=== PATIENT | male | born 1930 | race Caucasian/White ===

== ENCOUNTER 2017-11-06 06:05 | Emergency (ER) | payer MEDICARE ==
--- NOTE | 2017-11-06 06:21 | Emergency Department Record ---
History of Present Illness - General Source: Patient Mode of Arrival: Wheelchair Limitations: No limitations - History of Present Illness Initial Comments: 87 yo male presents to ED for evaluation following a fall this morning resulting in "pain all over". Patient reports abdominal and right sided flank pain symptoms specifically following his fall. Patient reports that he fell from a chair this morning, is not sure whether or not he may have injured his head/neck. Patient also reports increased weakness following a fall 1 week ago. MD Complaint: Fall Onset/Timin -: Minutes(s) Fall From: Chair When Fall Occurred: 1-3 hours [employer] Fall Witnessed: No Place Fall Occurred: assisted/SNF Loss of Consciousness: None Prolonged Down Time?: No Symptoms Prior to Fall: None Location: Chest, Back, Abdomen Severity: Moderate Severity scale (1-10): 5 Quality: Aching Context: Tripped/slipped Associated Symptoms: Denies - [place] Coma Scale Eye Response: (4) Open spontaneously Motor Response: (6) Obeys commands Verbal Response: (5) Oriented Lobo Total: 15 <MIRZA GRACIA - Last Filed: 11/06/17 07:50> <TRICIA CRUZ - Last Filed: 11/06/17 08:41> - General Chief Complaint: Fall Injury Stated Complaint: FALL Time Seen by Provider: 11/06/17 06:15 - Related Data Allergies Allergy/AdvReac Type Severity Reaction Status Date / Time No Known Drug Allergies Allergy Verified 10/30/17 04:13 Travel Screening - Travel/Exposure Within Last 30 Days Have you traveled within the last 30 days?: No - Travel Symptoms Symptom Screening: None <MIRZA GRACIA - Last Filed: 11/06/17 07:50> Review of Systems Constitutional: Denies: Chills, Fever, Malaise, Night sweats Eyes: Denies: Eye discharge, Eye pain ENT: Denies: Congestion, Ear pain, Epistaxis Respiratory: Denies: Cough, Dyspnea Cardiovascular: Denies: Chest pain, Dyspnea on exertion Endocrine: Denies: Fatigue, Heat or cold intolerance Gastrointestinal: Reports: Abdominal pain. Denies: Nausea, Vomiting Genitourinary: Denies: Incontinence, Retention Musculoskeletal: Reports: Back pain. Denies: Gout, Joint swelling Skin: Denies: Bruising, Change in color Neurological: Denies: Abnormal gait, Confusion, Headache, Seizure Psychiatric: Denies: Anxiety Hematological/Lymphatic: Denies: Anemia, Blood Clots <MIRZA GRACIA - Last Filed: 11/06/17 07:50> Past Medical History - SOCIAL HISTORY Smoking Status: Never smoker - RESPIRATORY Hx Respiratory Disorders: No - CARDIOVASCULAR Hx Cardio Disorders: Yes Hx Edema: Yes Hx Hypertension: Yes Comment:: high cholesterol - NEURO Hx Neuro Disorders: Yes Hx Dementia: Yes Comment:: Tremors - GI Hx GI Disorders: Yes Hx Reflux: Yes - Hx Genitourinary Disorders: Yes Hx Prostate Problems: Yes - ENDOCRINE Hx Endocrine Disorders: Yes Hx Thyroid Disease: Yes - MUSCULOSKELETAL Hx Musculoskeletal Disorders: Yes Hx Arthritis: Yes - PSYCH Hx Psych Problems: No - HEMATOLOGY/ONCOLOGY Hx Hematology/Oncology Disorders: Yes Hx Anemia: Yes Hx Cancer: Yes (Prostate, thyroid) Hx Chemotherapy: No Hx Radiation Therapy: No <MIRZA GRACIA - Last Filed: 11/06/17 07:50> Family Medical History Any Significant Family History?: Yes Hx Cancer: Mother, Brother/Sister Hx Heart Disease: Father <MIRZA GRACIA - Last Filed: 11/06/17 07:50> Physical Exam - General General Appearance: Alert, Oriented x3, Cooperative, Moderate distress, Other ( Patient appears very weak on examination, unable to sit up due to weakness and pain symptoms to the right flank/abdomen.) Limitations: No limitations - Head Head exam: Atraumatic, Normocephalic, Normal inspection Head exam detail: negative: Abrasion, Contusion, Valentin's sign, General tenderness, Hematoma, Laceration - Eye Eye exam: Normal appearance. negative: Conjunctival injection, Periorbital swelling, Periorbital tenderness, Scleral icterus - ENT Ear exam: negative: Auricular hematoma, Auricular trauma Nasal Exam: negative: Active bleeding, Discharge, Dried blood, Foreign body Mouth exam: negative: Drooling, Laceration, Muffled voice, Tongue elevation - Neck Neck exam: Normal inspection. negative: Meningismus, Tenderness - Respiratory Respiratory exam: Normal lung sounds bilaterally. negative: Rales, Respiratory distress, Rhonchi, Stridor - Cardiovascular Cardiovascular Exam: Regular rate, Normal rhythm, Normal heart sounds - GI/Abdominal GI/Abdominal exam: Soft, Tenderness (TTP to the RLQ, RUQ on examination). negative: Rebound, Rigid - Rectal Rectal exam: Deferred - exam: Deferred - Extremities Extremities exam: Pedal edema. negative: Calf tenderness, Tenderness - Back Back exam: Reports: CVA tenderness (R) (abraison present to the right flank) - Neurological Neurological exam: Alert, Oriented X3 - Psychiatric Psychiatric exam: Normal affect, Normal mood - Skin Skin exam: Abrasion (right flank). negative: Normal color Type of lesion: abrasion <MIRZA GRACIA - Last Filed: 11/06/17 07:50> Course Vital Signs 11/06/17 06:07 Temperature 98.1 F Pulse Rate 72 Respiratory 16 Rate Blood Pressure 143/69 Pulse Ox 99 - Reevaluation(s) Reevaluation #1: 11/06/17 06:26 EKG: NSR 60 Normal axis, normal intervals T wave inversion III Reevaluation #2: 11/06/17 06:49 Laboratory studies were reviewed: WBC 12.5 Hgb 9.1 (previous 8.9 10/19/17) Labs are otherwise grossly unremarkable for an acute process. UA pending. Reevaluation #3: 11/06/17 07:27 UA reviewed and appears grossly unremarkable for infection. Reevaluation #4: 11/06/17 07:50 CT imaging is pending at this time. Case was discussed with the patient's PCP, reports that the patient's [facility] facility has the ability to perform rehabilitation and strength exercises. <MIRZA GRACIA - Last Filed: 11/06/17 07:50> Vital Signs 11/06/17 11/06/17 06:07 07:29 Temperature 98.1 F Pulse Rate 72 Pulse Rate [ 58 L Pulse Ox Probe] Respiratory 16 22 Rate Blood Pressure 143/69 Blood Pressure 150/73 [Left Arm] Pulse Ox 99 100 - Reevaluation(s) Reevaluation #5: 11/06/17 08:[address] of the cervical spine was read as no fracture. Advanced degenerative changes The CT of the head was reviewed. Right temporal hypoattenuation that is age indeterminate without comparison, otherwise negative 11/06/17 08:[address] scan demonstrated old healed rib fractures. Right posterior small ill defined nodule. Recommend 3 month follow up The abdominal CT demonstrated an ill defined area of bowel thickening of the TI , cecum, and ascending colon. The findings were discussed with the patient and his The findings were discussed with Dr Galo the PCP. The patient has not had any acute neurologic symptoms to suggest the HCT finding is acute The patient is not having any GI symptoms such as pain, fever, vomiting or diarrhea. Dr Galo was informed of the HCT findings, right posterior lung mass for follow up in 3 months and the abdominal CT finding to monitor for any abdominal or GI symptoms in the next few days. DC stable to [facility]. <TRICIA CRUZ - Last Filed: 11/06/17 08:41> Medical Decision Making - Lab Data Result diagrams: 11/06/17 06:22 11/06/17 06:22 <MIRZA GRACIA - Last Filed: 11/06/17 07:50> - Lab Data Result diagrams: 11/06/17 06:22 11/06/17 06:22 Lab Results 11/06/17 11/06/17 11/06/17 Range/Units 06:22 06:22 07:15 WBC 12.5 H (4.2-12.2) K/uL RBC 3.31 L (4.40-5.70) M/uL Hgb 9.1 L (14.0-18.0) gm/dl Hct 31.5 L (42.0-52.0) % MCV 95.2 (81-97) fl MCH 27.4 (27-33) pg MCHC 28.9 L (32-36) g/dl RDW 14.4 (11.5-14.5) % Plt Count 475 H (130-400) K/uL MPV 9.3 (7.4-10.4) fl Gran % 73.0 (47-80) % Lymphocytes % 13.7 L (16-45) % Monocytes % 10.8 H (0-9) % Eosinophils % 2.3 (0-6) % Basophils % 0.2 (0-6) % Sodium 144 (136-145) mmol/L Potassium 4.3 (3.4-4.5) mmol/L Chloride 103 (98-107) mmol/L Carbon Dioxide 31.0 H (22-29) mmol/L Anion Gap 10.0 (7-16) BUN 24 H (8-23) mg/dL Creatinine 0.9 (0.7-1.2) mg/dL Estimated GFR > 60 mL/min Random Glucose 104 (74-109) mg/dL Calcium 8.6 L (8.8-10.2) mg/dL Total Bilirubin 0.40 (0.2-1.0) mg/dL AST 19 (10.0-50.0) U/L ALT 9 (<41) U/L Alkaline Phosphatase 59 (40-129) U/L Total Protein 5.9 L (6.6-8.7) g/dL Albumin 3.3 L (4.0-5.0) g/dL Globulin 2.6 (1.4-4.8) gm/dL Albumin/Globulin Ratio 1.3 (1.1-1.8) Urine Color Yellow Urine Appearance Clear Urine pH 6.0 (5.0-8.0) Ur Specific [place] 1.025 (1.002-1.030) Urine Protein Negative (NEGATIVE) Urine Glucose (UA) Negative (NEGATIVE) Urine Ketones Trace H (NEGATIVE) Urine Blood Negative (NEGATIVE) Urine Nitrite Negative (NEGATIVE) Urine Bilirubin Negative (NEGATIVE) Urine Urobilinogen 0.2 (0.20 - 1.00) E.U./dL Ur Leukocyte Esterase Negative (NEGATIVE) <TRICIA CRUZ - Last Filed: 11/06/17 08:41> Disposition Disposition: Discharge Time of Disposition: 07:53 <MIRZA GRACIA - Last Filed: 11/06/17 07:50> <TRICIA CRUZ - Last Filed: 11/06/17 08:41> Clinical Impression: Fall Qualifiers: Encounter type: initial encounter Qualified Code(s): W19.XXXA - Unspecified fall, initial encounter Contusion of flank Qualifiers: Encounter type: initial encounter Qualified Code(s): S30.1XXA - Contusion of abdominal wall, initial encounter Disposition: Home, Self-Care Condition: (2) Stable Instructions: Fall Prevention for Older Adults (ED) Additional Instructions: Return to ED if your symptoms worsen or if you have any concerns. Follow-up with Dr. Galo in 3-5 days as directed. Forms: Patient Portal Access Quality - Blood Pressure Screening Does Patient Have Any of the Following: No Blood Pressure Classification: Hypertensive Reading Systolic Measurement: 143 Diastolic Measurement: 69 <MIRZA GRACIA - Last Filed: 11/06/17 07:50> - Quality Measures Quality Measures: N/A - Blood Pressure Screening Does Patient Have Any of the Following: No Blood Pressure Classification: Hypertensive Reading Systolic Measurement: 143 Diastolic Measurement: 69 Screening for High Blood Pressure: < Pre-Hypertensive BP, F/U Documented > [ [id number]] Pre-Hypertensive Follow-up Interventions: Referral to alternative/primary care provider. <TRICIA CRUZ - Last Filed: 11/06/17 08:41>
[2017-11-06 06:29] LABS: BASO % 0.2 % (0-6); EOS % 2.3 % (0-6); HEMATOCRIT 31.5 % (42.0-52.0); HEMOGLOBIN 9.1 gm/dl (14.0-18.0); LYMPH % 13.7 % (16-45); MEAN CELL VOLUME 95.2 fl (81-97); MEAN CORPUSCULAR HGB CONC 28.9 g/dl (32-36); MEAN PLATELET VOLUME 9.3 fl (7.4-10.4); MONO % 10.8 % (0-9); PLATELET COUNT 475 K/uL (130-400); RED BLOOD COUNT 3.31 M/uL (4.40-5.70); RED CELL DISTRIBUTION WIDTH 14.4 % (11.5-14.5); WHITE BLOOD COUNT W/O DIFF 12.5 K/uL (4.2-12.2)
[2017-11-06 06:31] LABS: MEAN CORPUSCULAR HEMOGLOBIN 27.4 pg (27-33)
[2017-11-06 06:38] LABS: BLOOD UREA NITROGEN 24 mg/dL (8-23); CREATININE 0.9 mg/dL (0.7-1.2); EST GLOMERULAR FILTRATION RATE > 60 mL/min; TOTAL PROTEIN 5.9 g/dL (6.6-8.7)
[2017-11-06 06:40] LABS: GLUCOSE,RANDOM 104 mg/dL (74-109)
[2017-11-06 06:43] LABS: ALB/GLOB RATIO 1.3 (1.1-1.8); ALBUMIN 3.3 g/dL (4.0-5.0); ALKALINE PHOSPHATASE 59 U/L (40-129); ALT/SGPT 9 U/L (<41); AST/SGOT 19 U/L (10.0-50.0)
[2017-11-06] MEDS ORDERED: 0.9 % SODIUM CHLORIDE 1000ML 500 ML IV SCH (07:15)
[2017-11-06 07:24] LABS: URINE APPEARANCE CLEAR; URINE BILIRUBIN NEGATIVE (NEGATIVE); URINE BLOOD NEGATIVE (NEGATIVE); URINE COLOR YELLOW; URINE GLUCOSE (UA) NEGATIVE (NEGATIVE); URINE KETONE TRACE (NEGATIVE); URINE LEUKOCYTE ESTERASE NEGATIVE (NEGATIVE); URINE NITRITE NEGATIVE (NEGATIVE); URINE PROTEIN NEGATIVE (NEGATIVE); URINE UROBILINOGEN 0.2 E.U./dL (0.20 - 1.00)
--- NOTE | 2017-11-09 13:26 | CT SCAN REPORT ---
EXAM: CT OF THE HEAD WITHOUT CONTRAST HISTORY: SLIP AND FALL FROM CHAIR TO FLOOR. TECHNIQUE: Routine CT images of the head were obtained without contrast. FINDINGS: The ventricles, basal cisterns and sulci are enlarged consistent with prominent generalized cerebral atrophy. There is periventricular hypoattenuation likely related to chronic microvascular ischemia. There is a focus of hypoattenuation within the right temporal lobe which may relate to acute or chronic ischemia. Previous images are unavailable to document stability. No intracranial mass or hemorrhage. There are vascular calcifications. The orbital contents are unremarkable. There is mild scattered paranasal sinus mucosal thickening. IMPRESSION: 1. SMALL FOCUS OS HYPOATTENUATION WITHIN THE RIGHT TEMPORAL REGION. THIS COULD RELATE TO ACUTE OR CHRONIC ISCHEMIA. PLEASE CORRELATE CLINICALLY. IF PERSISTENT CLINICAL CONCERN MR COULD BE OBTAINED FOR FURTHER ASSESSMENT. 2. ELSEWHERE THERE ARE CHANGES OF CHANGES OF CHRONIC MICROVASCULAR ISCHEMIA AND PROMINENT GENERALIZED CEREBRAL ATROPHY. JOB NUMBER: [id number] MTDD
--- NOTE | 2017-11-09 13:29 | CT SCAN REPORT ---
EXAM: CT OF THE CERVICAL SPINE WITHOUT CONTRAST HISTORY: FALL FROM CHAIR. TECHNIQUE: Routine noncontrast CT images of the cervical spine were obtained. FINDINGS: No fracture, subluxation, or significant loss of vertebral body height. There is advanced multilevel degenerative disk and facet disease throughout. There are atherosclerotic calcifications. The visualized lung apices are clear. IMPRESSION: NO ACUTE CERVICAL SPINE ABNORMALITY. ADVANCED MULTILEVEL DEGENERATIVE DISK AND FACET DISEASE. JOB NUMBER: [id number] MTDD
--- NOTE | 2017-11-09 13:37 | CT SCAN REPORT ---
EXAM: CT OF THE CHEST WITHOUT CONTRAST HISTORY: SLIP AND FALL. TECHNIQUE: Routine noncontrast CT images of the chest were obtained. Comparison: None. FINDINGS: The heart is not enlarged. No pericardial effusion. There is aortic and coronary artery atherosclerosis. There are granulomatous calcifications within the mediastinal and hilar lymph nodes. There is a moderate to large hiatal hernia. The lungs are free of focal consolidation. No pleural effusion or pneumothorax. There is mild left basilar atelectasis. Additionally there is a somewhat irregular mass within the right lung base. Follow-up imaging likely is warranted. There is pronounced dextroscoliotic curvature of the thoracic spine. Old bilateral rib fractures. No clearly acute osseous abnormality. The chest wall is unremarkable. IMPRESSION: 1. MILD LEFT BASILAR ATELECTASIS. 2. IRREGULAR FOCUS WITHIN THE POSTERIOR RIGHT LOWER LOBE. NEOPLASM NOT EXCLUDED. OTHER PROCESSES SUCH SCAR COULD HAVE THIS APPEARANCE. PREVIOUS IMAGES UNAVAILABLE TO DOCUMENT STABILITY. AT A MINIMUM RECOMMEND SHORT TERM FOLLOW-UP CHEST CT IN THREE MONTHS. 3. OLD BILATERAL RIB FRACTURES. 4. DEXTROSCOLIOTIC CURVATURE OF THE THORACIC SPINE. 5. GRANULOMATOUS CALCIFICATIONS. 6. MODERATE TO LARGE HIATAL HERNIA. 7. OTHER CHRONIC FINDINGS ABOVE. JOB NUMBER: [id number] MTDD
--- NOTE | 2017-11-09 13:48 | CT SCAN REPORT ---
EXAM: CT OF THE ABDOMEN AND PELVIS WITHOUT CONTRAST HISTORY: SLIP AND FALL FROM CHAIR TO FLOOR. TECHNIQUE: Routine noncontrast CT images of the abdomen and pelvis were obtained. Comparison: None. FINDINGS: Please see concurrent chest CT for discussion of lung bases. The liver, gallbladder, pancreas, granulomatous spleen, and adrenals are unremarkable. There are bilateral renal cysts. Punctate nonobstructing right intrarenal calculi. No ureteral calculi or hydronephrosis. Large hiatal hernia. There is rectal wall thickening and inflammatory change which may relate to proctitis. Additionally, there is wall thickening and surrounding inflammatory change involving the cecum and ascending colon. This could relate to infectious or inflammatory change. No underlying neoplasm not excluded. Small bowel normal in caliber. Scattered colonic diverticulosis present elsewhere. The bladder is unremarkable. The prostate is surgically absent. There is moderate scattered atherosclerotic calcification. There is mild aortic ectasia without aneurysmal dilatation. No abdominal or pelvic lymphadenopathy. No free air. The abdominal wall soft tissues are unremarkable. Levocurvature of the lumbar spine. Moderate lumbar spondylosis. No acute osseous abnormality is seen. IMPRESSION: 1. THERE IS SIGNIFICANT WALL THICKENING WHICH APPEARS CENTERED WITHIN THE CECUM AND ASCENDING COLON. THE TERMINAL ILEUM ALSO APPEARS INVOLVED. THIS COULD RELATE TO UNDERLYING INFECTIOUS OR INFLAMMATORY CHANGE (INCLUDING INFLAMMATORY BOWEL DISEASE). NEOPLASM NOT EXCLUDED. CORRELATE WITH HISTORY OF COLONOSCOPY. 2. WALL THICKENING INVOLVING THE RECTUM WITH SURROUNDING INFLAMMATORY CHANGE AND EDEMA. THIS COULD RELATE TO PROCTITIS. THE PROSTATE IS SURGICALLY ABSENT, CHRONIC POST RADIATION CHANGES ARE ALSO POSSIBLE. 3. COLONIC DIVERTICULOSIS. 4. GRANULOMATOUS CALCIFICATIONS. 5. BILATERAL RENAL CYSTS. NONOBSTRUCTING RIGHT INTRARENAL CALCULUS. 6. OTHER CHRONIC FINDINGS ABOVE. JOB NUMBER: [id number] [facility]
== END 2017-11-06 08:52 | disposition home or self-care (01) ==
LOC: ER 06:05
DX: S30.1XXA Contusion of abdominal wall, initial encounter (principal); R53.1 Weakness; I10 Essential (primary) hypertension; W07.XXXA Fall from chair, initial encounter; Y92.129 Unspecified place in nursing home as the place of occurrence of the external cause; Z91.81 History of falling
CPT/HCPCS: 70450; 71250; 72125; 74176; 80053; 81003; 85025; 93005; 93010; 99284; J7030

== ENCOUNTER 2017-11-12 20:19 | Emergency (ER) | payer MEDICARE ==
--- NOTE | 2017-11-12 20:37 | Emergency Department Record ---
History of Present Illness - General Chief Complaint: Laceration(s) Stated Complaint: FALL INJURY/HIT HEAD Time Seen by Provider: 11/12/17 20:31 Source: Patient Mode of Arrival: Ambulatory - History of Present Illness Initial Commments: The patient was sitting on the bed this evening when he leaned backward and accidentally hit the back of his head on the window sill. He denies any falling to the floor, and denies any other symptoms such as chest pain, SOB, ERENDIRA, abdominal pain, dizziness, diaphoresis, or stroke symptoms. He is only here because it is protocol for im to be checked out, and he has a tiny cut on the spot where his head hit. He denies neck pain, headache, or need to update his tetanus. He denies being on blood thinners. The son is at the bedside and agrees with this assessment. He state also that his dad's feet are frequently cold and swelling is not a new problem. Onset/Timin -: Minutes(s) Location: Scalp Place: Other Context: Accidental - Related Data Allergies Allergy/AdvReac Type Severity Reaction Status Date / Time No Known Drug Allergies Allergy Verified 10/30/17 04:13 Travel Screening - Travel/Exposure Within Last 30 Days Have you traveled within the last 30 days?: No Review of Systems Reviewed: No additional complaints except as noted below Constitutional: Reports: As per HPI. Denies: Chills, Fever, Malaise, Night sweats, Weakness, Weight change Eyes: Reports: As per HPI. Denies: Eye discharge, Eye pain, Photophobia, Vision change ENT: Reports: As per HPI. Denies: Congestion, Dental pain, Ear pain, Epistaxis , Hearing loss, Throat pain Respiratory: Reports: As per HPI. Denies: Cough, Dyspnea, Hemoptysis, Stridor, Wheezes Cardiovascular: Reports: As per HPI. Denies: Arrhythmia, Chest pain, Dyspnea on exertion, Edema, Murmurs, Orthopnea, Palpitations, Paroxysmal nocturnal dyspnea, Rheumatic Fever, Syncope Endocrine: Reports: As per HPI. Denies: Fatigue, Heat or cold intolerance, Polydipsia, Polyuria Gastrointestinal: Reports: As per HPI. Denies: Abdominal pain, Constipation, Diarrhea, Hematemesis, Hematochezia, Melena, Nausea, Vomiting Genitourinary: Reports: As per HPI. Denies: Dysuria, Frequency, Hematuria, Incontinence, Retention, Testicular pain, Testicular mass, Urgency Musculoskeletal: Reports: As per HPI. Denies: Arthralgia, Back pain, Gout, Joint swelling, Myalgia, Neck pain Skin: Reports: As per HPI. Denies: Bruising, Change in color, Change in hair/ nails, Lesions, Pruritus, Rash Neurological: Reports: As per HPI. Denies: Abnormal gait, Confusion, Headache, Numbness, Paresthesias, Seizure, Tingling, Tremors, Vertigo, Weakness Psychiatric: Reports: As per HPI. Denies: Anxiety, Auditory hallucinations, Depression, Homicidal thoughts, Suicidal thoughts, Visual hallucinations Hematological/Lymphatic: Reports: As per HPI. Denies: Anemia, Blood Clots, Easy bleeding, Easy bruising, Swollen glands Past Medical History - SOCIAL HISTORY Smoking Status: Never smoker Alcohol Use: None Drug Use: None - RESPIRATORY Hx Respiratory Disorders: No - CARDIOVASCULAR Hx Cardio Disorders: Yes Hx Edema: Yes Hx Hypertension: Yes Comment:: high cholesterol - NEURO Hx Neuro Disorders: Yes Hx Dementia: Yes Comment:: Tremors - GI Hx GI Disorders: Yes Hx Reflux: Yes - Hx Genitourinary Disorders: Yes Hx Prostate Problems: Yes - ENDOCRINE Hx Endocrine Disorders: Yes Hx Thyroid Disease: Yes - MUSCULOSKELETAL Hx Musculoskeletal Disorders: Yes Hx Arthritis: Yes - PSYCH Hx Psych Problems: No - HEMATOLOGY/ONCOLOGY Hx Hematology/Oncology Disorders: Yes Hx Anemia: Yes Hx Cancer: Yes (Prostate, thyroid) Hx Chemotherapy: No Hx Radiation Therapy: No Family Medical History Any Significant Family History?: Yes Hx Cancer: Mother, Brother/Sister Hx Heart Disease: Father Physical Exam - General General Appearance: Alert, Oriented x3, Cooperative, No acute distress - Head Head exam: Other (1-2mm superficial cutto back of head at edge of hairline, edges do not gape, small contusion beneath wit no bony tenderness or deformity.) Image of Face/Head: 1 - 1-2 mm tiny superficial laceration, no suturing needed. - Eye Eye exam: Normal appearance, PERRL Pupils: Normal accommodation - ENT ENT exam: Normal exam, Mucous membranes moist, Normal external ear exam, Normal orophraynx, TM's normal bilaterally Ear exam: Normal external inspection. negative: External canal tenderness Nasal Exam: Normal inspection. negative: Discharge, Sinus tenderness Mouth exam: Normal external inspection, Tongue normal Teeth exam: Normal inspection. negative: Dental caries Throat exam: Normal inspection. negative: Tonsillar erythema, Tonsillar exudate - Neck Neck exam: Normal inspection, Full ROM. negative: Lymphadenopathy, Meningismus , Tenderness - Respiratory Respiratory exam: Normal lung sounds bilaterally. negative: Respiratory distress - Cardiovascular Cardiovascular Exam: Regular rate, Normal rhythm, Normal heart sounds - GI/Abdominal GI/Abdominal exam: Soft, Normal bowel sounds. negative: Tenderness - Rectal Rectal exam: Deferred - exam: Deferred - Extremities Extremities exam: Normal inspection, Full ROM, Normal capillary refill, Pedal edema (chronic appearing mild to moderate bilateral pedal edema). negative: Calf tenderness, Tenderness - Back Back exam: Reports: Normal inspection, Full ROM. Denies: CVA tenderness (R), CVA tenderness (L), Muscle spasm, Rash noted, Tenderness - Neurological Neurological exam: Alert, CN II-XII intact, Normal gait, Oriented X3, Reflexes normal. negative: Motor sensory deficit - Psychiatric Psychiatric exam: Normal affect, Normal mood - Skin Skin exam: Dry, Intact, Normal color, Warm Course Vital Signs 11/12/17 20:24 Temperature 98.3 F Pulse Rate [ 65 Pulse Ox Probe] Respiratory 18 Rate Blood Pressure 154/72 [Left Arm] Pulse Ox 100 - Reevaluation(s) Reevaluation #1: 11/12/17 20:40 Patient declined pain medication. Medical Decision Making - Management Options MDM Management: No Additional Work-up Planned Disposition Disposition: Discharge Clinical Impression: Laceration of skin of scalp Qualifiers: Encounter type: initial encounter Qualified Code(s): S01.01XA - Laceration without foreign body of scalp, initial encounter Disposition: Home, Self-Care Condition: (1) Good Instructions: Laceration (ED) Additional Instructions: Keep covered for protection when sleeping or laying down. Ice to contusion first 48 hours. Tylenol as needed as directed for pain. Follow up with PCP as needed. Quality - Quality Measures Quality Measures: N/A - Blood Pressure Screening Does Patient Have Any of the Following: No Blood Pressure Classification: Hypertensive Reading Systolic Measurement: 154 Diastolic Measurement: 72 Screening for High Blood Pressure: Patient Exclusion, Hx of HTN [J0304]
== END 2017-11-12 20:51 | disposition home or self-care (01) ==
LOC: ER 20:19
DX: S01.01XA Laceration without foreign body of scalp, initial encounter (principal); W06.XXXA Fall from bed, initial encounter; I10 Essential (primary) hypertension; Y92.129 Unspecified place in nursing home as the place of occurrence of the external cause
CPT/HCPCS: 99282

== ENCOUNTER 2017-11-22 00:20 | Emergency (ER) | payer MEDICARE ==
[2017-11-22] MEDS ORDERED: ACETAMINOPHEN 500 MG TABLET PO ONE (00:35)
--- NOTE | 2017-11-22 00:40 | Emergency Department Record ---
History of Present Illness - General Chief complaint: Lower Extremity Pain Stated complaint: R LEG AND HIP PAIN Time Seen by Provider: 11/22/17 00:25 Source: Patient, Family Mode of Arrival: Wheelchair Limitations: No limitations - History of Present Illness Initial comments: pt states he fell earlier today and now has pain in his r thigh and knee. he denies hitting his head. Complaint: Extremity pain Onset/Timin -: Hour(s) Location: Right, Thigh Severity scale (1-10): 8 Consistency: Constant Improves with: Rest Worsens with: Exertion, Weight bearing Associated Symptoms: Denies other symptoms - Related Data Allergies Allergy/AdvReac Type Severity Reaction Status Date / Time No Known Drug Allergies Allergy Verified 10/30/17 04:13 Travel Screening - Travel/Exposure Within Last 30 Days Have you traveled within the last 30 days?: No - Travel Symptoms Symptom Screening: None Review of Systems Reviewed: No additional complaints except as noted below Constitutional: Reports: As per HPI. Denies: Chills, Fever, Malaise, Night sweats, Weakness, Weight change Eyes: Reports: As per HPI. Denies: Eye discharge, Eye pain, Photophobia, Vision change ENT: Reports: As per HPI. Denies: Congestion, Dental pain, Ear pain, Epistaxis , Hearing loss, Throat pain Respiratory: Reports: As per HPI. Denies: Cough, Dyspnea, Hemoptysis, Stridor, Wheezes Cardiovascular: Reports: As per HPI. Denies: Arrhythmia, Chest pain, Dyspnea on exertion, Edema, Murmurs, Orthopnea, Palpitations, Paroxysmal nocturnal dyspnea, Rheumatic Fever, Syncope Endocrine: Reports: As per HPI. Denies: Fatigue, Heat or cold intolerance, Polydipsia, Polyuria Gastrointestinal: Reports: As per HPI. Denies: Abdominal pain, Constipation, Diarrhea, Hematemesis, Hematochezia, Melena, Nausea, Vomiting Genitourinary: Reports: As per HPI. Denies: Dysuria, Frequency, Hematuria, Incontinence, Retention, Testicular pain, Testicular mass, Urgency Musculoskeletal: Reports: As per HPI. Denies: Arthralgia, Back pain, Gout, Joint swelling, Myalgia, Neck pain Skin: Reports: As per HPI. Denies: Bruising, Change in color, Change in hair/ nails, Lesions, Pruritus, Rash Neurological: Reports: As per HPI. Denies: Abnormal gait, Confusion, Headache, Numbness, Paresthesias, Seizure, Tingling, Tremors, Vertigo, Weakness Psychiatric: Reports: As per HPI. Denies: Anxiety, Auditory hallucinations, Depression, Homicidal thoughts, Suicidal thoughts, Visual hallucinations Hematological/Lymphatic: Reports: As per HPI. Denies: Anemia, Blood Clots, Easy bleeding, Easy bruising, Swollen glands Past Medical History - SOCIAL HISTORY Smoking Status: Never smoker - RESPIRATORY Hx Respiratory Disorders: No - CARDIOVASCULAR Hx Cardio Disorders: Yes Hx Edema: Yes Hx Hypertension: Yes Comment:: high cholesterol - NEURO Hx Neuro Disorders: Yes Hx Dementia: Yes Comment:: Tremors - GI Hx GI Disorders: Yes Hx Reflux: Yes - Hx Genitourinary Disorders: Yes Hx Prostate Problems: Yes - ENDOCRINE Hx Endocrine Disorders: Yes Hx Thyroid Disease: Yes - MUSCULOSKELETAL Hx Musculoskeletal Disorders: Yes Hx Arthritis: Yes - PSYCH Hx Psych Problems: No - HEMATOLOGY/ONCOLOGY Hx Hematology/Oncology Disorders: Yes Hx Anemia: Yes Hx Cancer: Yes (Prostate, thyroid) Hx Chemotherapy: No Hx Radiation Therapy: No Family Medical History Any Significant Family History?: Yes Hx Cancer: Mother, Brother/Sister Hx Heart Disease: Father Physical Exam - General General Appearance: Alert, Oriented x3, Cooperative, Mild distress - Head Head exam: Normal inspection - Eye Eye exam: Normal appearance, PERRL, EOMI Pupils: Normal accommodation - ENT ENT exam: Normal exam, Mucous membranes moist, Normal external ear exam, Normal orophraynx Ear exam: Normal external inspection. negative: External canal tenderness Nasal Exam: Normal inspection. negative: Discharge, Sinus tenderness Mouth exam: Normal external inspection, Tongue normal Teeth exam: Normal inspection. negative: Dental caries Throat exam: Normal inspection. negative: Tonsillar erythema, Tonsillar exudate - Neck Neck exam: Normal inspection, Full ROM. negative: Tenderness - Respiratory Respiratory exam: Normal lung sounds bilaterally. negative: Respiratory distress - Cardiovascular Cardiovascular Exam: Regular rate, Normal rhythm, Normal heart sounds - GI/Abdominal GI/Abdominal exam: Soft, Normal bowel sounds. negative: Tenderness - Rectal Rectal exam: Deferred - exam: Deferred - Extremities Extremities exam: Normal inspection, Full ROM, Normal capillary refill, Tenderness (over femur and knee), Other (pt able to lift both legs without difficulty) - Back Back exam: Reports: Normal inspection, Full ROM. Denies: Muscle spasm, Rash noted, Tenderness - Neurological Neurological exam: Alert, CN II-XII intact, Normal gait, Oriented X3 - Psychiatric Psychiatric exam: Normal affect, Normal mood - Skin Skin exam: Dry, Intact, Normal color, Warm Course Vital Signs 11/22/17 11/22/17 00:22 00:26 Temperature 97.6 F Pulse Rate 89 Respiratory 16 Rate Blood Pressure 179/74 Pulse Ox 98 Disposition Disposition: Discharge Clinical Impression: Patella fracture Qualifiers: Encounter type: initial encounter Fracture type: closed Fracture morphology: longitudinal Fracture alignment: nondisplaced Laterality: right Qualified Code(s ): S82.024A - Nondisplaced longitudinal fracture of right patella, initial encounter for closed fracture Disposition: [facility] Condition: (1) Good Instructions: Patellar Fracture (ED), Knee Immobilizer (ED) Additional Instructions: follow up with family doctor and with orthopedic doctor. return sooner if worse. ice and elevate. Forms: Patient Portal Access Quality - Quality Measures Quality Measures: N/A - Blood Pressure Screening Does Patient Have Any of the Following: Active Dx of HTN Blood Pressure Classification: Hypertensive Reading Systolic Measurement: 179 Diastolic Measurement: 74 Screening for High Blood Pressure: Patient Exclusion, Hx of HTN [G9744]
[2017-11-22] MEDS ORDERED: PROMETHAZINE HCL 25 MG TABLET PO ONE (02:24)
--- NOTE | 2017-11-24 10:01 | RADIOLOGY REPORT ---
EXAM: RIGHT HIP HISTORY: FALL WITH RIGHT HIP PAIN. TECHNIQUE: A single frontal view of the pelvis and frontal and lateral views of the right hip were obtained. Comparison: Right hip radiographs 10/30/17. FINDINGS: No acute fracture is seen. No right hip dislocation. Mild degenerative changes of both hips. Lower lumbar spine degenerative change. Large stool ball in the rectum. IMPRESSION: 1. NO ACUTE OSSEOUS FINDINGS. 2. MILD DEGENERATIVE CHANGES. 3. A LARGE STOOL BALL IS INCIDENTALLY NOTED IN THE RECTUM. JOB NUMBER: [id number] [facility]
--- NOTE | 2017-11-24 10:05 | RADIOLOGY REPORT ---
EXAM: RIGHT KNEE HISTORY: FALL WITH PATELLAR KNEE PAIN. TECHNIQUE: Four views of the right knee were obtained. Comparison: None. FINDINGS: No definite knee joint effusion. Prepatellar soft tissue swelling. Vertical lucency extending through the lateral aspect of the patella. Otherwise, no evidence of fracture. No dislocation. Tricompartmental knee joint osteoarthrosis. Large quadriceps insertion. Patellar enthesophyte. Vascular calcifications are noted. 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 MILD PREPATELLAR SOFT TISSUE SWELLING IS NOTED. JOB NUMBER: [id number] [facility]
== END 2017-11-22 02:45 ==
LOC: ER 00:20
DX: S82.024A Nondisplaced longitudinal fracture of right patella, initial encounter for closed fracture (principal); M25.551 Pain in right hip; M79.651 Pain in right thigh; I10 Essential (primary) hypertension; W19.XXXA Unspecified fall, initial encounter; Y92.129 Unspecified place in nursing home as the place of occurrence of the external cause
CPT/HCPCS: 99283; 99284; Q0170

== ENCOUNTER 2018-03-20 21:52 | Emergency (ER) | payer MEDICARE ==
--- NOTE | 2018-03-20 22:00 | Emergency Department Record ---
History of Present Illness - General Chief Complaint: Fall Injury Stated Complaint: FELL OUT OF BED Time Seen by Provider: 03/20/18 21:53 Source: Patient, EMS Mode of Arrival: EMS Limitations: No limitations - History of Present Illness Initial Comments: 87 yo male presents to ED for evaluation following a fall from bed. Patient deneis LOC, and denies use of anticoagulation medications other than baby aspirin. Patient denies symptoms prior to his fall, denies headache, neck pain , focal weakness, or extremity injury on examination. MD Complaint: Fall Onset/Timin -: Minutes(s) Fall From: Out of bed When Fall Occurred: Just prior to arrival Fall Witnessed: No Place Fall Occurred: Home Loss of Consciousness: None Prolonged Down Time?: No Symptoms Prior to Fall: None Location: Head - [place] Coma Scale Eye Response: (4) Open spontaneously Motor Response: (6) Obeys commands Verbal Response: (5) Oriented [place] Total: 15 - Related Data Home Medications Medication Instructions Recorded Confirmed Last Taken Escitalopram Oxalate [Lexapro] 5 mg PO DAILY 03/20/18 03/20/18 Unknown Tamsulosin HCl [Flomax] 0.4 mg PO DAILY 03/20/18 03/20/18 Unknown Allergies Allergy/AdvReac Type Severity Reaction Status Date / Time No Known Drug Allergies Allergy Verified 10/30/17 04:13 Review of Systems Constitutional: Denies: Chills, Fever, Malaise, Night sweats Eyes: Denies: Eye discharge, Eye pain ENT: Denies: Congestion, Ear pain, Epistaxis Respiratory: Denies: Cough, Dyspnea Cardiovascular: Denies: Chest pain, Dyspnea on exertion Endocrine: Denies: Fatigue, Heat or cold intolerance Gastrointestinal: Denies: Abdominal pain, Nausea, Vomiting Genitourinary: Denies: Incontinence, Retention Musculoskeletal: Denies: Arthralgia, Back pain, Gout, Joint swelling Skin: Reports: Other (Abrasion forehead). Denies: Bruising, Change in color Neurological: Denies: Abnormal gait, Confusion, Headache, Seizure Psychiatric: Denies: Anxiety Hematological/Lymphatic: Denies: Anemia, Blood Clots Past Medical History - SOCIAL HISTORY Smoking Status: Never smoker - RESPIRATORY Hx Respiratory Disorders: No - CARDIOVASCULAR Hx Cardio Disorders: Yes Hx Edema: Yes Hx Hypertension: Yes Comment:: high cholesterol - NEURO Hx Neuro Disorders: Yes Hx Dementia: Yes Comment:: Tremors - GI Hx GI Disorders: Yes Hx Reflux: Yes - Hx Genitourinary Disorders: Yes Hx Prostate Problems: Yes - ENDOCRINE Hx Endocrine Disorders: Yes Hx Thyroid Disease: Yes - MUSCULOSKELETAL Hx Musculoskeletal Disorders: Yes Hx Arthritis: Yes - PSYCH Hx Psych Problems: No - HEMATOLOGY/ONCOLOGY Hx Hematology/Oncology Disorders: Yes Hx Anemia: Yes Hx Cancer: Yes (Prostate, thyroid) Hx Chemotherapy: No Hx Radiation Therapy: No Family Medical History Hx Cancer: Mother, Brother/Sister Hx Heart Disease: Father Physical Exam - General General Appearance: Alert, Oriented x3, Cooperative, No acute distress Limitations: No limitations - Head Head exam: Other (Abrasions to the scalp) Head exam detail: Abrasion. negative: Contusion, Valentin's sign, General tenderness, Hematoma, Laceration - Eye Eye exam: Normal appearance. negative: Conjunctival injection, Periorbital swelling, Periorbital tenderness, Scleral icterus - ENT Ear exam: negative: Auricular hematoma, Auricular trauma Nasal Exam: negative: Active bleeding, Discharge, Dried blood, Foreign body Mouth exam: negative: Drooling, Laceration, Muffled voice, Tongue elevation - Neck Neck exam: Other (Cervical collar in place) - Respiratory Respiratory exam: Normal lung sounds bilaterally. negative: Rales, Respiratory distress, Rhonchi, Stridor - Cardiovascular Cardiovascular Exam: Regular rate, Normal rhythm, Normal heart sounds - GI/Abdominal GI/Abdominal exam: Soft. negative: Rebound, Rigid, Tenderness - Rectal Rectal exam: Deferred - exam: Deferred - Extremities Extremities exam: Normal inspection, Full ROM. negative: Pedal edema, Tenderness - Back Back exam: Denies: CVA tenderness (R), CVA tenderness (L) - Neurological Neurological exam: Alert, Oriented X3. negative: Motor sensory deficit - Psychiatric Psychiatric exam: Normal affect, Normal mood - Skin Skin exam: Abrasion (as described above), Normal color Distribution of rash: Head Course - Reevaluation(s) Reevaluation #1: 03/20/18 22:48 CT Brain: No acute intra-cranial hemorrhage Stable chronic changes CT Cervical Spine: Degenerative disc disease No acute traumatic injury to the cervical spine is identified Patient's cervical collar was removed, cervical spine was cleared. Patient and his son were updated on all results, appears stable for discharge at this time. Disposition Disposition: Discharge Clinical Impression: Fall from bed, initial encounter Scalp contusion Qualifiers: Encounter type: initial encounter Qualified Code(s): S00.03XA - Contusion of scalp, initial encounter Disposition: Home, Self-Care Condition: (2) Stable Instructions: Fall Prevention for Older Adults (ED) Additional Instructions: Return to ED if your symptoms worsen or if you have any concerns. Follow-up with your family doctor in 3-5 days as directed. Forms: Patient Portal Access Time of Disposition: 22:00 Quality - Quality Measures Quality Measures: N/A, Blunt Head Trauma (>2yr) - [place] Coma Scale [place] Coma Scale: [place] Coma Scale Eye Response: (4) Open spontaneously Motor Response: (6) Obeys commands Verbal Response: (5) Oriented [place] Total: 15 - Blunt Head Trauma - Adult Quality Measure: Measure #415: Utilization of CT for Minor Blunt Head Trauma ICD10 Codes Entered: Yes Was CT ordered: Yes Does Patient Have Any of the Following: No Exclusions Patient Presented Within 24 Hours of Injury: Yes Lobo Score: [address] for Minor Blunt Head Trauma: < CT Done, Appropriate Indication > [G9529] Additional Inclusion Criteria: Within 24hrs (AND) GCS of 15 (AND) CT ordered. [ G9530] Indications For CT: Age 65 Years and Older - Blood Pressure Screening Does Patient Have Any of the Following: Active Dx of HTN Blood Pressure Classification: Hypertensive Reading Systolic Measurement: 171 Diastolic Measurement: 76 Screening for High Blood Pressure: Patient Exclusion, Hx of HTN [G9744]
--- NOTE | 2018-03-22 08:15 | CT SCAN REPORT ---
EXAM: CT SCAN OF THE HEAD HISTORY: PATIENT HAS A HISTORY OF FALL. TECHNIQUE: Serial axial CT scan of the head was performed at 2.5 mm intervals from the base of the skull to the apex without the use of intravenous contrast. Sagittal and coronal reconstructions are provided. Comparison: CT scan of the head dated 11/06/17 is provided. FINDINGS: There is ventriculomegaly. Moderate parenchymal volume loss is noted. These findings are unchanged with respect to the prior CT scan. There is no mass or mass effect. Moderate periventricular and subcortical white matter chronic small vessel ischemic changes is noted. There is no CT evidence of intra or extraaxial fluid collection to suggest bleeding. Bone windows demonstrate no CT evidence of a fracture or dislocation of the skull. The paranasal sinuses are unremarkable. IMPRESSION: STABLE CT APPEARANCE OF THE BRAIN WITH RESPECT TO THE PRIOR EXAMINATION. JOB NUMBER: [id number] [facility]
--- NOTE | 2018-03-22 08:20 | CT SCAN REPORT ---
EXAM: CT SCAN OF THE CERVICAL SPINE HISTORY: PATIENT HAS A HISTORY OF FALL. TECHNIQUE: Serial axial CT scan of the cervical spine was performed at 2.5 mm intervals from the base of the skull to the thoracic inlet without the use of intravenous contrast. Sagittal and coronal reconstructions are provided. Comparison: CT scan of the cervical spine dated 11/06/17 is provided. FINDINGS: The vertebral body height, contour, and AP alignment of the cervical spine is within normal limits. There is no CT evidence of a fracture or dislocation of the cervical spine. Multilevel advanced degenerative disk disease of the cervical spine is again noted and appears similar to the prior CT scan. The prevertebral soft tissue and parapharyngeal fat are unremarkable. The bilateral parotid glands and submandibular glands are unremarkable. The thyroid gland is not visualized. Postoperative changes are identified in the region of the thyroid bed. There is no CT evidence of cervical lymphadenopathy. The airways are patent. The lung windows of the lung apices are clear. IMPRESSION: MULTILEVEL DEGENERATIVE DISK DISEASE OF THE CERVICAL SPINE IS NOTED WITHOUT ct EVIDENCE OF AN ACUTE PROCESS INVOLVING THE CERVICAL SPINE. [facility]BER: [id number] [facility]
== END 2018-03-20 23:12 | disposition home or self-care (01) ==
LOC: ER 21:52
DX: S00.03XA Contusion of scalp, initial encounter (principal); M50.30 Other cervical disc degeneration, unspecified cervical region; I10 Essential (primary) hypertension; W06.XXXA Fall from bed, initial encounter; Y92.122 Bedroom in nursing home as the place of occurrence of the external cause
CPT/HCPCS: 70450; 72125; 99283; 99284